=== PATIENT | female | born 1965 | race Caucasian/White ===

== ENCOUNTER 2022-11-22 10:04 | Outpatient (OUT) | payer BC, SELFPAY ==
[2022-11-22 07:37] LABS: Basophils Absolute Auto 0.1 10^3/uL (0.0-0.1); Basophils Percent Auto 0.9 % (0.2-2.0); Eosinophils Absolute Auto 0.2 10^3/uL (0.0-0.7); Eosinophils Percent Auto 3.4 % (0.9-7.0); Hematocrit 41.3 % (36.0-48.0); Hemoglobin 13.2 g/dL (12.0-16.0); Immature Granulocytes Abs Auto 0.01 10^3/uL (0.00-0.03); Immature Granulocytes Pct Auto 0.2 % (0.0-0.5); Lymphocytes Absolute Auto 1.6 10^3/uL (1.2-3.8); Lymphocytes Percent Auto 29.6 % (20.5-60.0); Mean Corpuscular Hemoglobin 27.5 pg (26.7-34.0); Mean Platelet Volume 9.2 fL (9.5-13.5); Monocytes Absolute Auto 0.5 10^3/uL (0.3-0.8); Neutrophils Percent Auto 56.9 % (43.0-75.0); Platelet Count 225 10^3/uL (150-450); Red Cell Distribution Width 14.2 % (11.0-15.0); White Blood Count 5.3 10^3/uL (4.0-11.0)
[2022-11-22 07:59] LABS: Estimated Average Glucose 117 mg/dL; Glycohemoglobin A1C 5.7 % (4.5-6.2)
[2022-11-22 08:11] LABS: Alanine Aminotransferase 27 U/L (14-59); Albumin Globulin Ratio 1.1; Albumin Level 3.9 g/dL (3.4-5.0); Alkaline Phosphatase 74 U/L (46-116); Anion Gap 12.6; Aspartate Amino Transferase 16 U/L (15-37); BUN Creatinine Ratio 14.9; Bilirubin Total 0.6 mg/dL (0.2-1.0); Calcium 8.8 mg/dL (8.5-10.1); Carbon Dioxide 27.4 mmol/L (21.0-32.0); Chloride 103 mmol/L (98-107); Chol HDL Ratio 3.1; Cholesterol 188 mg/dL (<=200); Estimated GFR (African America >60 (>=60); Estimated GFR (Non-African Ame >60 (>=60); Free T3 3.34 pg/mL (2.18-3.98); Globulin 3.7 g/dL; Glucose 102 mg/dL (74-106); HDL Cholesterol 61 mg/dL (40-60); Sodium 139 mmol/L (136-145); Thyroid Stimulating Hormone 2.475 uIU/mL (0.358-3.740); Total Protein 7.6 g/dL (6.4-8.2); Triglycerides 77 mg/dL (<=150); VLDL CHOLESTEROL 15.4 mg/dL
== END 2022-11-22 10:05 | disposition home or self-care (01) ==
LOC: LAB 11-28 10:04
PROVIDERS: PCP Family Medicine; Visit Provider Family Medicine
DX: Z00.00 Encounter for general adult medical examination without abnormal findings (principal)
CPT/HCPCS: 36415; 80053; 80061; 83036; 83540; 84436; 84443; 84481; 85025

== ENCOUNTER 2023-02-17 08:27 | Outpatient (OUT) | payer BC, SELFPAY | END 2023-02-17 08:28 | disposition home or self-care (01) | LOC: PST 08:27 | PROVIDERS: PCP Family Medicine; Visit Provider Surgery | DX: Z01.818 Encounter for other preprocedural examination (principal); R19.5 Other fecal abnormalities ==

== ENCOUNTER 2023-02-25 07:12 | Day surgery (SDC) | payer BC, SELFPAY ==
--- NOTE | 2023-02-25 | OP_ITS ---
OPERATION DATE: ??02/25/2023 PREOPERATIVE DIAGNOSIS:? Positive Cologuard. POSTOPERATIVE DIAGNOSIS:? Normal colonoscopy to cecum. PROCEDURE:? Colonoscopy to cecum. SURGEON:? Russel Talbert M.D. ANESTHESIA:? Monitored anesthesia care. ESTIMATED BLOOD LOSS:? Zero. INDICATIONS AND CONSENT:? Patient is a 57-year-old female presents for positive Cologuard.? Indications, risks, benefits, alternatives of proceeding with colonoscopy were explained extensively to the patient, including the risks of bleeding, colon perforation or anesthetic complications.? All of her questions were answered.? Informed consent was obtained. PROCEDURE:? Patient brought to the operating room, placed in the left lateral decubitus position.? Monitored anesthesia care was provided.? Rectal exam was performed which showed no masses or blood.? The scope was inserted into the anal canal.? Under direct visualization was advanced.? It was advanced to the cecum where cecal markings were clearly identified.? Upon withdrawal of the scope, mucosal surfaces were carefully examined.? There were no mass lesions or polyps.? There was noted to be a good prep.? There were no inflammatory changes or ulcerations.? No significant diverticulosis.? The scope was retroflexed in the anal canal.? There was no significant hemorrhoidal disease.? Scope was then withdrawn.? Patient tolerated procedure well, was sent to recovery room in good condition. f/u colonoscopy in 10 years. CC:? Blaze Duncan M.D. MTDD
[2023-02-25 07:26] VITALS: BP 141/103; PULSE 110; RESP 16; TEMP 35.9; O2SAT 96; BMI 38.8
[2023-02-25] MEDS: LACTATED RINGER'S SOLUTION 1,000 ML 50 ML IV (07:34)
[2023-02-25 09:00] VITALS: BP 98/67; PULSE 88; RESP 17; TEMP 36.2; O2SAT 94
[2023-02-25 09:15] VITALS: BP 101/60; PULSE 79; RESP 18; O2SAT 98
[2023-02-25 09:30] VITALS: BP 122/75; PULSE 78; RESP 18; O2SAT 97
== END 2023-02-25 09:33 | disposition home or self-care (01) ==
PROVIDERS: PCP Family Medicine; Visit Provider Surgery
PROC: (CPT 811; principal; 2023-02-25 08:25)
DX: R19.5 Other fecal abnormalities (principal); K21.9 Gastro-esophageal reflux disease without esophagitis; I10 Essential (primary) hypertension; E66.01 Morbid (severe) obesity due to excess calories; Z68.39 Body mass index [BMI] 39.0-39.9, adult; D50.9 Iron deficiency anemia, unspecified
CPT/HCPCS: 45378; J2704

== ENCOUNTER 2023-03-06 12:00 | Outpatient (OUT) | payer BC, SELFPAY ==
[2023-03-06 14:28] LABS: SARS-CoV-2 Ag POSITIVE (NEGATIVE)
== END 2023-03-06 12:01 | disposition home or self-care (01) ==
LOC: LAB 13:07
PROVIDERS: PCP Family Medicine; Visit Provider Family Medicine
DX: J01.90 Acute sinusitis, unspecified (principal)
CPT/HCPCS: 87811

== ENCOUNTER 2024-02-24 09:50 | Outpatient (OUT) | payer BC, SELFPAY ==
[2024-02-24 10:09] LABS: Basophils Percent Auto 0.8 % (0.2-2.0); Eosinophils Absolute Auto 0.2 10^3/uL (0.0-0.7); Eosinophils Percent Auto 2.9 % (0.9-7.0); Hematocrit 42.5 % (36.0-48.0); Hemoglobin 13.7 g/dL (12.0-16.0); Lymphocytes Absolute Auto 1.7 10^3/uL (1.2-3.8); Lymphocytes Percent Auto 33.7 % (20.5-60.0); Mean Corpuscular HGB Conc 32.2 g/dL (29.9-35.2); Mean Corpuscular Hemoglobin 27.7 pg (26.7-34.0); Mean Corpuscular Volume 85.9 fL (81.0-99.0); Mean Platelet Volume 9.2 fL (9.5-13.5); Monocytes Absolute Auto 0.4 10^3/uL (0.3-0.8); Monocytes Percent Auto 7.9 % (1.7-12.0); Neutrophils Absolute Auto 2.8 10^3/uL (1.4-6.5); Neutrophils Percent Auto 54.7 % (43.0-75.0); Platelet Count 226 10^3/uL (150-450); Red Blood Count 4.95 10^6/uL (4.20-5.40); White Blood Count 5.2 10^3/uL (4.0-11.0)
--- OUTSIDE RECORDS SUMMARY | 2024-02-24 10:11 | XMS_ITS | CCD ---
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 Name Role Phone MARCOS DUNCANLAS Attending Unavailable HOY, ARLEY Consulting Unavailable HOY, ARLEY Primary Care Unavailable HOY, ARLEY Admitting Unavailable Russel BURRELL Attending Unavailable Russel BURRELL Attending Unavailable Arley Duncan MD Primary Care Provider [phone] ANITA VINCENT Attending Unavailable HOY, ARLEY M Referring Unavailable HOY, ARLEY M Primary Care Unavailable MELISA, ANITA L Attending Unavailable HOY, ARLEY M Referring Unavailable HOY, ARLEY M Primary Care Unavailable MELISA, ANITA L Attending Unavailable HOY, ARLEY M Referring Unavailable HOY, ARLEY M Primary Care Unavailable MELISA, ANITA L Attending Unavailable HOY, ARLEY M Referring Unavailable HOY, ARLEY M Primary Care Unavailable MELISA, ANITA L Referring Unavailable HOY, ARLEY M Primary Care Unavailable MELISA, ANITA L Attending Unavailable MELISA, ANITA L Referring Unavailable HOY, ARLEY M Primary Care Unavailable MELISA, ANITA L Referring Unavailable HOY, ARLEY M Primary Care Unavailable MELISA, ANITA L Referring Unavailable HOY, ARLEY M Primary Care Unavailable Allergies Allergy Classification Reported Allergen(s) Allergy Type Date of Onset Reaction(s) Facility (1 source) No Known Medication Allergies; Translations: [No Known Medication Allergies] Propensity to adverse reactions (disorder) [facility] Repository Medications Current Medications Medication Drug Class(es) Dates Sig (Normalized) Sig (Original) estradiol 0.1 mg/ml vaginal cream (2 sources) Estrogen Start: 09-29-2023 End: 02-01-2024 estradioL (ESTRACE) 0.01 % (0.1 mg/gram) vaginal cream Insert 1 g into the vagina in the morning. 42.5 g 1 02/01/2024 Active olmesartan medoxomil 20 mg oral tablet (1 source) Angiotensin 2 Receptor Macie Start: 04-12-2018 take 1 tablet by mouth in the morning olmesartan (BENICAR) 20 mg tablet Take 1 tablet (20 mg total) by mouth in the morning. 04/12/2018 Active Problems Active Problems Problem Classification Problem Date Documented Date Episodic/Chronic Esophageal disorders (1 source) Gastroesophageal reflux disease; Translations: [Gastro-esophageal reflux disease without esophagitis] Onset: 10-02-2020 10-02-2020 Chronic Immunizations and screening for infectious disease (4 sources) Contact with and (suspected) exposure to other viral communicable diseases; Translations: [CONTCT EXPS OTH VIRL COMMUNICABL DZ] Onset: 01-31-2020 Episodic Menopausal disorders (1 source) Perimenopausal state; Translations: [Menopausal and female climacteric states] Onset: 04-07-2016 08-30-2019 Chronic Other female genital disorders (2 sources) Other specified abnormal uterine and vaginal bleeding; Translations: [Other specified abnormal uterine and vaginal bleeding] Onset: 08-18-2023 Chronic Other female genital disorders (1 source) Abnormal uterine and vaginal bleeding, unspecified; Translations: [Abnormal uterine and vaginal bleeding, unspecified] Onset: 09-14-2023 Chronic Other screening for suspected conditions (not mental disorders or infectious disease) (3 sources) Patient encounter status; Translations: [Encounter for screening mammogram for malignant neoplasm of breast] Onset: 02-01-2024 02-01-2024 Episodic Other upper respiratory infections (1 source) Acute recurrent frontal sinusitis; Translations: [ACUTE RECURRENT FRONTAL SINUSITIS] Onset: 02-03-2020 Episodic Unclassified (1 source) Annual Exam Onset: 02-01-2024 Unclassified (1 source) irregular bleeding Onset: 08-18-2023 Past or Other Problems Problem Classification Problem Date Documented Date Episodic/Chronic Mood disorders (1 source) Mood disorders Onset: 02-01-2024 02-01-2024 Other and unspecified benign neoplasm (1 source) Pituitary microadenoma; Translations: [Benign neoplasm of pituitary gland] Onset: 04-07-2016 04-07-2016 Episodic Other female genital disorders (1 source) History of gynecological disorder; Translations: [Personal history of other diseases of the female genital tract] Onset: 05-28-2018 05-28-2018 Episodic Other hematologic conditions (1 source) History of anemia; Translations: [Personal history of diseases of the blood and blood-forming organs and certain disorders involving the immune mechanism] Onset: 05-28-2018 05-28-2018 Episodic Unclassified (1 source) Onset: 02-01-2024 02-01-2024 Results Test Name Value Interpretation Reference Range Facility Surgical Pathologyon 024 Surgical Pathology Normal [facility] Comment on above: Result Comment: [facility] [address] [place] [address] Surgical Pathology Consultation Patient Name:ZULLY LUX:1965 (Age: 58)Gender:FTaken:4Reported:4Physician(s):Anita Vincent M.D. ([phone])Copy To: Rec. #:[id number]: #[id number] Final Pathologic Diagnosis 1. Endometrial biopsy: Detached fragments of endometrial epithelium are submitted with much mucus. No atypia identified. 2. Endocervical curettings: Few fragments of endocervical type glandular epithelium are submitted with much mucus and purulent exudate. No atypia identified. Report Electronically Signed Out acr/4Anncastillo Silva MD Interpretation performed at [facility], [address] [place], [place] [address], License number: [id number]. Clinical History Abnormal uterine bleeding (AUB) N93.9. AUB postmenopausal. Gross Description 1. Received in formalin labeled, LUX, EMB is a pale-ventura mucoid material mixed with ventura to brown friable soft tissue fragments and hemorrhagic material, 2 x 1 x 0.2 cm in aggregate. The specimens are filtered and submitted in a single cassette. (1, ns, [id number], m4) TB 2. Received in formalin labeled, LUX, ECC is a plastic metal brush with a pale-ventura mucoid material mixed with ventura scant friable soft tissue fragments, 2 x 0.8 x 0.2 cm in aggregate. The specimens are filtered and submitted in a single cassette. (1, ns, [id number], m4) TB tgb/09/15/2023NSK Specimen(s) Received 1: Endometrial biopsy 2: Endocervical curettings Fee Codes(s): 1; 72992 2; 69487 US PELVIC WITH TRANSVAGINALo n 08-20-2023 US PELVIC WITH TRANSVAGINAL US PELVIC WITH TRANSVAGINAL Pelvic ultrasound History:Dysfunctional uterine bleeding Comparison:01/08/2022 Findings: Transabdominal and transvaginal sonographic evaluation of the pelvis. Transabdominal imaging performed to evaluate for extra adnexal pelvic pathology. Transvaginal imaging performed for better delineation of the adnexal and endometrial contents. Uterus measures 8.4 x 3.7 x 4.0 cm. Endometrial complex measures 0.3 cm. Right ovary is not visualized secondary to diminished sonographic windows and penetration. Left ovary is not well-visualized however appears to measure 2.3 x 1.9 x 1.8 cm. No free pelvic fluid. Evaluation is compromise by diminished sonographic windows and penetration. Impression: Nonvisualization of the right ovary. No evidence right adnexal mass. Otherwise, unremarkable sonographic appearance of the pelvis. Finalized by Russel Benoit MD on 08/20/2023 3:28 PM Normal [facility] COMPLETE BLOOD COUNTon 08-17 Erythrocyte distribution width (RBC) [Ratio] 14.6 % Normal 11.5-15.0 [facility] Comment on above: Performed By: #### C , 3016-3, 2842-3, 3024-7, 66641-3, 32910-2, 70004-2 #### [facility] ([id number]) [address], [address] [place] [address] Hematocrit (Bld) [Volume fraction] 40.8 % Normal 35-47 [facility] Comment on above: Performed By: #### C BC, 3016-3, 2842-3, 3024-7, 43026-4, 59941-9, 33785-1 #### [facility] ([id number]) [address], [address] [place] [address] Hemoglobin (Bld) [Mass/Vol] 13.3 g/dL Normal 11.7-15.5 [facility] Comment on above: Performed By: #### Lindy ESPARZA, 3016-3, 2842-3, 3024-7, 81599-6, 98088-4, 11241-6 #### [facility] ([id number]) [address], [address] [place] [address] MCH (RBC) [Entitic mass] 27.1 pg Normal 27-34 [facility] Comment on above: Performed By: #### Lindy ESPARZA, 3016-3, 2842-3, 3024-7, 72572-4, 35550-8, 59799-9 #### [facility] ([id number]) [address], [address] [place] [address] MCHC (RBC) [Mass/Vol] 32.5 g/dL Normal 32-36 [facility] Comment on above: Performed By: #### Lindy ESPARZA, 3016-3, 2842-3, 3024-7, 53498-8, 56522-8, 63776-2 #### [facility] ([id number]) [address], [address] [place] [address] MCV (RBC) [Entitic vol] 83 fL Normal 80-100 [facility] Comment on above: Performed By: #### Lindy ESPARZA, 3016-3, 2842-3, 3024-7, 60547-1, 83755-9, 13494-5 #### [facility] ([id number]) [address], [address] [place] [address] Platelet mean volume (Bld) [Entitic vol] 7.7 fL Normal 7-12 [facility] Comment on above: Performed By: #### Lindy ESPARZA, 3016-3, 2842-3, 3024-7, 92231-1, 23533-9, 30463-0 #### [facility] ([id number]) [address], [address] [place] [address] Platelets (Bld) [#/Vol] 240 10*3/uL Normal 150-450 [facility] Comment on above: Performed By: #### Lindy ESPARZA, 3016-3, 2842-3, 3024-7, 86009-9, 82361-6, 92994-4 #### [facility] ([id number]) [address], [address] [place] [address] RBC COUNT 4.91 X10E12/L Normal 3.80-5.20 [facility] Comment on above: Performed By: #### Lindy ESPARZA, 3016-3, 2842-3, 3024-7, 81190-4, 77957-6, 66092-7 #### [facility] ([id number]) [address], [address] [place] [address] WBC (Bld) [#/Vol] 5.2 10*3/uL Normal 4.0-11.0 [facility] Comment on above: Performed By: #### C ISAIAS, 3016-3, 2842-3, 3024-7, 70803-7, 10386-9, 45585-5 #### [facility] ([id number]) [address], [address] [place] [address] FREE T4on 08-18-2023 Free T4 [Mass/Vol] 0.87 ng/dL Normal 0.61-1.60 [facility] Comment on above: Performed By: #### C BC, 3016-3, 2842-3, 3024-7, 77301-0, 30128-6, 23418-3 #### [facility] ([id number]) [address], [address] [place] [address] Follitropin Qnon 08-18-2023 FOLLICLE STIM HORMONE 48.6 mIU/mL Normal [facility] Comment on above: Result Comment: NORMAL FEMALE Luteal 1.8-5.1 mIU/mL Follicular 3.8-8.8 mIU/mL Mid Cycle 4.5-22.5 mIU/mL Post Hemalatha 16.7-113.6 mIU/mL Performed By: #### C BC, 3016-3, 2842-3, 3024-7, 03269-9, 90855-9, 33530-0 #### [facility] ([id number]) [address] [facility] [place] [address] HCG.beta subunit IA 3rd IS Q non 08-18-2023 SERUM B HCG,3RD I.S. <5 Normal [facility] Comment on above: Result Comment: NEW REFERENCE RANGE WEEKS (SINCE LMP) MIU/mL 3 WEEKS 5 - 50 4 WEEKS 5 - 426 5 WEEKS 18 - 7,340 6 WEEKS 1,080 - 56,500 7-8 WEEKS 7,650 - 229,000 9-12 WEEKS 25,700 - 288,000 13-16 WEEKS 13,300 - 254,000 17-24 WEEKS 4,060 - 165,400 25-40 WEEKS 3,640 - 117,000 MALES AND NON- FEMALES - <5 MIU/mL This test has been FDA approved for use in only. Elevated levels are not necessarily diagnostic for trophoblastic or nontrophoblastic neoplasms. Performed By: #### C BC, 3016-3, 2842-3, 3024-7, 28687-3, 08708-3, 77265-3 #### [facility] ([id number]) [address], [address] [place] [address] Lutropin Qnon 08-18-2023 LUTEINIZING HORMONE 24.8 mIU/mL Normal [facility] Comment on above: Result Comment: NORMAL FEMALE Follicular 2.1-10.9 mIU/mL Mid Cycle 19.2-103 mIU/mL Luteal 1.2-12.9 mIU/mL Post Hemalatha 10.9-58.6 mIU/mL Performed By: #### C , 3016-3, 2842-3, 3024-7, 00910-6, 50672-7, 83726-9 #### [facility] ([id number]) [address] [facility], [address] [place] [address] Prolactin [Mass/Vol]on 08-17 PROLACTIN 6.5 ng/mL Normal 2.7-19.6 [facility] Comment on above: Performed By: #### Lindy , 3016-3, 2842-3, 3024-7, 30611-4, 82340-1, 83995-1 #### [facility] ([id number]) [address] [facility], [address] [place] [address] TSH Qnon 08-18-2023 TSH 1.55 uIU/mL Normal 0.49-4.67 [facility] Comment on above: Performed By: #### Lindy , 3016-3, 2842-3, 3024-7, 55378-4, 55193-7, 54209-7 #### [facility] ([id number]) [address] [facility], [address] [place] [address] Outside Colonoscopyon 2022 Outside Colonoscopy [id number]#1 .00TIFF Normal [facility] Reminderson 02-26-2023 Reminders - From: Mimi Mcmahon LPN To: Herbert - Clinical; Sent: 02/26/2023 11:44:40 EST Show up: 01/26/2033 07:00:00 EST Subject: colonoscopy recall Due Date/Time: 02/25/2033 07:00:00 EST Reminder/Recall Patient due for screening colonoscopy 02/25/2033. [facility] Consent for Procedure/Surger yon 02-04-2023 Consent for Procedure/Surgery [id number]# 1.00TIFF [facility] Facesheeton 02-04-2023 Facesheet [id number]# 1.00TIFF [facility] Insurance Correspondenceon 04-06-2022 Insurance Correspondence [id number]#1. 00TIFF [facility] Ambulatory Visit Summaryon 04-05-2022 Ambulatory Visit Summary ZULLY LUX :1965 Visit Date:02/03/2023 Ambulatory Visit Instructions Your Diagnosis Positive colorectal cancer screening using Cologuard test BMI 39.0-39.9,adult Your Care Team Attending Physician - INDRA DYE, Russel Miller Primary Care Physician - Arley Duncan MD This Is Your Medications List Contact prescribing physician if questions or concerns olmesartan (olmesartan 20 mg Tab) Procedures Performed section, section, Excision of intradermal nevus, History of vein surgery. Discharge Vitals Heart Rate (Peripheral) 76 Respiratory Rate 16 Blood Pressure 118/84 Height 177.8 cm Height 70 in Weight 124 kg Weight 272.8 lb BMI 39.22 Medications What How Much When Instructions Unchanged olmesartan (olmesartan 20 mg Tab) 1 Tablets By Mouth Every day 0 Refill(s) Contact prescribing physician if questions or concerns Medications and Immunizations Administered Not Given influenza virus vaccine, inactivated, Patient Refuses Allergies No Known Allergies No Known Medication Allergies Problems Ongoing - Any problem that you are currently receiving treatment for. BMI 39.0-39.9,adult Gastroesophageal reflux disease HTN (hypertension) Iron deficiency anemia Morbid obesity Pituitary microadenoma Positive colorectal cancer screening using Cologuard test Patient Survey You may receive a survey via text or e-mail asking about your office visit. Please share your experience with us by completing your survey. We appreciate your feedback and thank you for choosing us for your care. Normal [facility] Physician Referralon 023 Physician Referral [id number]#1 .00TIFF Normal [facility] COVID-19 PCRon 02-02-2020 SARS-CoV-2, ANJALI Not Detected Normal Not Detected [facility] Comment on above: Result Comment: This nucleic acid amplification test was developed and its performance characteristics determined by [employer]. Nucleic acid amplification tests include PCR and TMA. This test has not been FDA cleared or approved. This test has been authorized by FDA under an Emergency Use Authorization (EUA). This test is only authorized for the duration of time the declaration that circumstances exist justifying the authorization of the emergency use of in vitro diagnostic tests for detection of SARS-CoV-2 virus and/or diagnosis of COVID-19 infection under section 564(b)(1) of the Act, 21 U.S.C. 360bbb-3(b) (1), unless the authorization is terminated or revoked sooner. When diagnostic testing is negative, the possibility of a false negative result should be considered in the context of a patient's recent exposures and the presence of clinical signs and symptoms consistent with COVID-19. An individual without symptoms of COVID-19 and who is not shedding SARS-CoV-2 virus would expect to have a negative (not detected) result in this assay. Performed By: #### C VDPCR #### [facility] [address] [place] [address] Vital Signs Date Time Vital Sign Value Performing Clinician Faci lity 02-01-2024 10:44-0500 Body mass index (BMI) [Ratio] 40.59 kg/m2 Anita Vincent MD Work Phone: [facility] 02-01-2024 10:44-0500 Body weight 128.32 kg Anita Vincent MD Work Phone: [facility] [employer] [facility] 02-01-2024 10:44-0500 Diastolic blood pressure 90 mm[Hg] Anita Vincent MD Work Phone: [facility] 02-01-2024 10:44-0500 Systolic blood pressure 132 mm[Hg] Anita Vincent MD Work Phone: [facility] Encounters Encounter Date Encounter Type Care Provider Facility Start: 02-22-2024 End: 02-22-2024 ambulatory [facility] Start: 02-01-2024 End: 02-01-2024 Patient encounter status Anita Vincent MD Work Phone: [facility] Start: 02-01-2024 End: 02-01-2024 Periodic preventive med est patient 40-64yrs Anita Vincent MD Work Phone: [facility]ne[facility] Comment on above: Encounter for gyneco logical examination (general) (routine) without abnormal findings (Primary Dx); Encounter for screening mammogram for malignant neoplasm of breast Start: 02-01-2024 End: 02-01-2024 ambulatory [facility] Start: 02-01-2024 Encounter for gynecological examination (general) (routine) without abnormal findings [facility] Start: 09-29-2023 End: 09-29-2023 ambulatory [facility] Start: 09-14-2023 End: 09-14-2023 ambulatory [facility] Start: 09-14-2023 End: 09-14-2023 ambulatory [facility] Start: 09-14-2023 Encounter for preprocedural laboratory examination [facility] Start: 08-20-2023 End: 08-20-2023 ambulatory [facility] Start: 08-18-2023 End: 08-18-2023 ambulatory [facility] Start: 08-18-2023 End: 08-18-2023 ambulatory [facility] Start: 02-25-2023 End: 02-26-2023 ambulatory Russel BURRELL Facility:CD:[id number] Start: 02-03-2023 End: 02-04-2023 ambulatory Russel BURRELL Facility:[facility] Start: 02-02-2023 ambulatory Russel BURRELL Facility:[facility] Start: 01-07-2023 ambulatory Russel BURRELL Facility:[facility] Start: 01-31-2020 End: 02-01-2020 Patient encounter procedure ARLEY DUNCAN Facility:[facility] Procedures Date Procedure Procedure Detail Performing Clinician Start: 02-01-2024 Adult depression scr eening assessment Anita Vincent MD Work Phone: Start: 09-29-2023 Follow-up visit Follow-up ANITA VINCENT Start: 09-14-2023 Biopsy Biopsy ANITA GELLER Start: 12-30-2021 Microscopic observat ion [Identifier] in Cervix by Cyto stain Anita Vincent MD Work Phone: Plan of Treatment Date Care Activity Detail Author Start: 12-30-2024 Screening for malign ant neoplasm of cervix Pap Smear [facility] [address] Start: 09-28-2024 Adult [facility] Start: 09-28-2024 Tobacco Screening [facility] Start: 02-22-2024 End: 02-22-2024 Patient encounter procedure 02/22/2024 10:15 AM EST Appointment [facility] - Mammography[facility]A Imaging [address] [place] [address] [facility] Start: 02-01-2024 End: 03-31-2025 DBT Breast - bilateral screening Mammography screening bilateral with CAD Imaging Routine Encounter for screening mammogram for malignant neoplasm of breast Expected: 02/01/2024, Expires: 03/31/2025 [employer] Work Phone: Comment on above: Expected: 02/01/2024 , Expires: 03/31/2025 Start: 01-14-2024 Adult BMI Follow Up Plan Adult BMI [facility] Start: 01-14-2024 Depression Screening Depression Scre ening [facility] Start: 11-22-2023 COVID-19 Vaccine ( season) COVID-19 Vaccine ( season) [facility] Start: 11-22-2023 Influenza vaccination Influenza Vacc ine [facility] Start: 05-30-2017 Administration of varicella zoster vaccine Zoster (Shingles) Vaccine (1 of 2) [facility] Start: 05-30-1986 DTaP,Tdap and Td Vac cines (1 - Tdap) DTaP,Tdap and Td Vaccines (1 - Tdap) [facility] Payers Date Payer Category Payer Blue Cross Blue Shie ld Managed Care - Other [facility] [id number] 1965 Unknown [id number] 2.840.1.732414.3.579. 2.593 1965 Unknown [id number] 2.840.1.657246.3.579. 2.727 1965 Unknown [id number] 2.840.1.391028.3.579. 2.727 1965 Unknown [id number] 2.16840.1.946757.3.579. 2.1286 1965 Unknown [id number] 2.16840.1.898892.3.579. 2.1286 1965 Unknown [id number] 2.16.840.1.456744.3.579. 2.1286 1965 Unknown [id number] 2.16.840.1.330951.3.579. 2.1286 1965 Unknown [id number] 2.16.840.1.510112.3.579. 2.1286 1965 Unknown [id number] 2.16.840.1.303320.3.579. 2.1286 1965 Unknown [id number] 2.16.840.1.348233.3.579. 2.1286 1965 Unknown [id number] 2.16.840.1.167338.3.579. 2.1286 1957 Unknown [id number] Social History Date Type Detail Facility Start: 08-18-2023 Tobacco smoking stat [facility] Never smoked tobacco [facility] Start: 08-18-2023 Tobacco use and exposure Smokeless tobacco non-user [facility] Start: 02-01-2024 Alcoholic beverage intake Current non-drinker of alcohol (finding) [facility] Start: 05-03-2020 End: 02-01-2024 History of Social function [facility] Start: 05-03-2020 End: 02-01-2024 Tobacco use panel [facility] Adolescent depressio n screening assessment 0 [facility] Start: 1965 Sex assigned at Not on file P [facility] Start: 10-26-2014 Sex Female (finding) [facility] History of Present illness Narrative 02-01-2024 Anita Vincent MD - 02/01/2024 10:30 AM EST Note Date & Type Note Facility 02-01-2024 History of Present illness Narrative Zully Lux is a pleasant 58 y.o. female who presents for annual urogynaecologist exam. She is postmenopausal. Hysterectomy: no If yes, age and reason:n/a She is not sexually active. No painful intercourse or pelvic pain. 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 Vaginal Bleeding none Hot flashes / menopausal symptoms - Mild Bladder issues - None Bowel issues - None History of abnormal Pap smear: no Last pap: 12/30/21 Family history of uterine or ovarian cancer: no Family hx pancreatic or prostate cancer: no Family history of colon cancer: no Family history of breast cancer: yes - maternal grandmother Regular self breast exam: yes Last mammogram: 02/16/23 Dexa Scan: n/a Colonoscopy / Cologuard: 02/2023 PHQ9 depression screenin OB History 2 Para 2 Term 2 AB Living 2 SAB IAB Ectopic Multiple Live Births 2 Past Medical History: Diagnosis Date Hypertension Past Surgical History: Procedure Laterality Date SECTION x2 COLONOSCOPY 02/2023 [facility] VEIN SURGERY Family History Problem Relation Age of Onset Hypertension Father Stroke Father Diabetes Mother Breast cancer Maternal Grandmother 67 Bry Breast Cancer Neg Hx Current Outpatient Medications Medication Sig Dispense Refill estradioL (ESTRACE) 0.01 % (0.1 mg/gram) vaginal cream Insert 1 g into the vagina in the morning. 42.5 g 1 olmesartan (BENICAR) 20 mg tablet Take 1 tablet (20 mg total) by mouth in the morning. No current facility-administered medications for this visit. ALLERGIES Allergies Allergen Reactions No Known Drug Allergies Review of Systems Physical Exam BP 132/90 Wt 128.3 kg (282 lb 14.4 oz) LMP 07/21/2021 BMI 40.59 kg/m LMP 07/21/2021 Physical Exam Physical Exam GEN AAOX3, NAD HEENT UNREMARKABLE HEART RRR LUNGS CTAB ABD BENIGN, OBESE, NTND PELVIS: EG APPROP FOR AGE, NO LESIONS VAGINA APPROP FOR AGE, NO LESIONS BIMANUAL NO MASSES OR TENDERNESS RECTAL DEFERRED EXTREM NO CCE, NO CALF TENDERNESS Assessment / Plan Zully was seen today for annual exam. Diagnoses and all orders for this visit: Encounter for gynecological examination (general) (routine) without abnormal findings Encounter for screening mammogram for malignant neoplasm of breast - Mammography screening bilateral with CAD; Future Next pap due in 3 years. Discussed ASCCP screening guidelines. BMI is above average; Discussed eating tips for weight loss and and exercise steps. Discussed SBE. Discussed taking a multivitamin. Discussed Calcium and Vitamin D for prevention of osteoporosis. Discussed need for yearly mammogram after 40 yo. Order placed. Patient to discuss colon cancer screening recommendations with PCP. Educational material provided. All questions answered. RTO for annual urogynaecologist exam and / or PRN. Happy with her estrogen cream. ANITA VINCENT MD I, Darren Richard (scribe), documented on behalf of Dr. Vincent. Darren Richard 02/01/24 1107 documented in this encounter [facility] Clinical Note 02-03-2023 Note Date & Type Note Facility 02-03-2023 Note Chief Complaint consultation for positive Cologuard HPI Staff 57 year old female presents on consultation from Dr. Duncan for positive Cologuard. Denies abdominal or rectal pain. No rectal bleeding or change in bowel habits. Denies nausea or vomiting. No unexplained weight loss. Never had colonoscopy in the past. No known family history of colon cancer. History of Present Illness 57 yo female with h/o htn, GERD, referred for positive Cologuard; denies change in bms or blood in stools, no abd complaints; abd operations significant for x2; no previous colonoscopy, negative Cologuard in 2019; no asa or NSAID use; no fmhx of GI malignancy or IBD; no tobacco use. Review of Systems PHQ Score Initial Depression Screen Score: 0 SCORE ROS - Provider Constitutional: no fever, no sweats, no weight loss. Eyes: no glasses, no blurred vision, no visual loss. ENMT: no dentures, no hoarseness, no swallowing difficulties, no hearing loss, no ear infection(s), no nose bleeds. Cardiovascular: normal blood pressure, no chest pain, regular heartbeat, no heart murmur. Respiratory: no shortness of breath, no cough, no asthma, no wheezing. Gastrointestinal: no nausea, no vomiting, no diarrhea, no constipation, no blood in stool, no change in bowel habits, no abdominal pain, no hepatitis. Genitourinary: no kidney stones, no urine infection, no dysuria. Musculoskeletal: no pain, no weakness. Skin: no changing moles, no rash, no skin lumps. Neurologic: no seizures, no epilepsy, no headache. Psychiatric: no emotional or psychiatric problem. Heme/Lymph: no bleeding problems, no anemia, no blood clots, no transfusions. Allergy/Immunologic: no swollen lymph nodes/glands, no IV drug abuse. Other: Additional ROS info: Except as noted in the above Review of Systems and in the History of Present Illness, all other systems have been reviewed and are negative or noncontributory. Physical Exam Vitals & Measurements HR: 76(Peripheral) RR: 16 BP: 118/84 HT: 70 in HT: 177.8 cm WT: 124 kg WT: 272.8 lb BMI: 39.22 HEENT: normal conjunctiva, sclera clear, no scleral icterus, EOM intact, PERRLA, oral mucosa moist without lesions. Neck: trachea midline, no mass, symmetric, no thyromegaly or nodules, no adenopathy Respiratory: lungs CTA, respirations non labored. Cardiovascular: regular rate and rhythm, no murmur, no pedal edema or varicosities. Gastrointestinal: soft, obese,, no tenderness, no masses, no palpable hernias, diastasis recti no, no hepatosplenomegaly; normal bs Lymphatic: no cervical adenopathy, no supraclavicular adenopathy. Musculoskeletal: normal gait, digits and nails without infection, nodes, cyanosis, clubbing. Skin: no rashes, no lesions, no ulcers, no subcutaneous nodules, induration. Psychiatric/Neuro: oriented to time, place, person, judgement normal, affect appropriate for age, insight intact, no focal deficits. Tests: labs reviewed, , review of old records completed , Discussed surgical options, risks, and possible complications with patient. Assessment/Plan 1. Positive colorectal cancer screening using Cologuard test (R19.5: Other fecal abnormalities) plan colonoscopy under anesthesia, informed consent obtained. 2. BMI 39.0-39.9,adult (Z68.39: Body mass index [BMI] 39.0-39.9, adult) recommend diet and exercise. Follow-up No qualifying data available Problem List/Past Medical History Ongoing BMI 39.0-39.9,adult Gastroesophageal reflux disease HTN (hypertension) Iron deficiency anemia Morbid obesity Pituitary microadenoma Positive colorectal cancer screening using Cologuard test Historical No qualifying data Procedure/Surgical History section, section, Excision of intradermal nevus, History of vein surgery. Medications olmesartan 20 mg Tab, 20 mg= 1 tab(s), Oral, Daily Allergies No Known Allergies No Known Medication Allergies Social History Alcohol - Denies Alcohol Use, 02/03/2023 Substance Abuse - Denies Substance Abuse, 02/03/2023 Tobacco Never (less than 100 in lifetime) Tobacco Use:. Never Smokeless Tobacco Use:., 02/03/2023 Family History Diabetes mellitus type 2: Mother. Heart disease: Father. Hypertension: Father. Stroke: Father. Immunizations Vaccine Date Status Comments influenza virus vaccine, inactivated - Not Given Patient Refuses SARS-CoV-2 (COVID-19) mRNA BNT-162b2 vax 08/08/2020 Recorded 2023-01-19: [id number] SARS-CoV-2 (COVID-19) mRNA BNT-162b2 vax 07/18/2020 Recorded 2023-01-19: [id number] [facility] Comment on above: Result Comment: Elec tronically Signed By: INDRA DYE, Russel Miller\trey\Date and Time Signed: 02/03/23 15:46 EST Evaluation note Note Date & Type Note Facility Evaluation note Diagnosis Encounter for gynecological examination (general) (routine) without abnormal findings- Primary Encounter for screening mammogram for malignant neoplasm of breast documented in this encounter [facility] Instructions Note Date & Type Note Facility Instructions Not on filedocumented in this en counter [facility] Summary Purpose Family History No Family History Records FoundNo Family History Records FoundNo Family History Records FoundNo Family History Records Found Advance Directives No Advanced Directives Records FoundNo Advanced Directives Records FoundNo Advanced Directives Records FoundNo Advanced Directives Records Found Additional Source Comments INFORMATION SOURCE (unrecogn ized section and content) DATE CREATED AUTHOR 02/03/[address] [facility] DATE CREATED AUTHOR AUTHOR'S ORGANIZ ATION 03/19/2023 [facility] DATE CREATED AUTHOR AUTHOR'S ORGANIZ ATION 02/02/20[facility] DATE CREATED AUTHOR AUTHOR'S ORGANIZ ATION 02/23/2024 [facility] Reason for Visit (unrecogniz ed section and content) Reason Comments Annual Exam Care Teams (unrecognized sec tion and content) [employer]ne[employer] Relationship Specialty Start Date End Date Arley Duncan MD PCP - General 01/13/17 FOR RECORDS PERTAINING TO PATIENTS WHO ARE OR HAVE BEEN ENROLLED IN A CHEMICAL DEPENDENCY/SUBSTANCEABUSE PROGRAM, SOME INFORMATION MAY BE OMITTED. This clinical summary was aggregated from multiple sources. Caution should be exercised in using it in the provision of clinical care. This summary normalizes information from multiple sources, and as a consequence, information in this document may materially change the coding, format and clinical context of patient data. In addition, data may be omitted in some cases. CLINICAL DECISIONS SHOULD BE BASED ON THE PRIMARY CLINICAL RECORDS. [facility]. provides no warranty or guarantee of the accuracy or completeness of information in this document.
[2024-02-24 10:40] LABS: Estimated Average Glucose 123 mg/dL; Glycohemoglobin A1C 5.9 % (4.5-6.2)
[2024-02-24 10:47] LABS: Alanine Aminotransferase 28 U/L (14-59); Albumin Globulin Ratio 1.1; Albumin Level 3.9 g/dL (3.4-5.0); Alkaline Phosphatase 80 U/L (46-116); Anion Gap 10.1; Aspartate Amino Transferase 19 U/L (15-37); Bilirubin Total 0.8 mg/dL (0.2-1.0); Calcium 9.3 mg/dL (8.5-10.1); Carbon Dioxide 29.9 mmol/L (21.0-32.0); Chloride 105 mmol/L (98-107); Chol HDL Ratio 3.1; Cholesterol 186 mg/dL (<=200); Estimated GFR (African America >60 (>=60 mL/min/1.73m^2); Estimated GFR (Non-African Ame >60 (>=60 mL/min/1.73m^2); Free T3 2.93 pg/mL (2.18-3.98); Globulin 3.7 g/dL; Glucose 95 mg/dL (74-106); HDL Cholesterol 60 mg/dL (40-60); LDL Cholesterol Calculated 105.2 mg/dL; Sodium 141 mmol/L (136-145); Thyroid Stimulating Hormone 2.157 uIU/mL (0.358-3.740); Total Protein 7.6 g/dL (6.4-8.2); Triglycerides 104 mg/dL (<=150); VLDL CHOLESTEROL 20.8 mg/dL
[2024-02-25 04:07] LABS: Insulin 14.9 uIU/mL (2.6-24.9)
== END 2024-02-24 09:51 | disposition home or self-care (01) ==
LOC: LAB 09:51
PROVIDERS: PCP Family Medicine; Visit Provider Family Medicine
DX: Z00.00 Encounter for general adult medical examination without abnormal findings (principal)
CPT/HCPCS: 36415; 80053; 80061; 83036; 83525; 83540; 84436; 84443; 84481; 85025